=== PATIENT | female | born 1945 | race Two or more races ===

== ENCOUNTER 2017-06-09 18:17 | Emergency (ER) | payer MEDICARE, MEDICAID ==
--- NOTE | 2017-06-09 19:30 | ED Physician Chart ---
ED Chief Complaint/HPI - Patient Information Date Seen:: 06/09/17 Time Seen:: 17:20 Chief Complaint:: PT VERY CONFUSED AND UNABLE TO PROVIDE ANY HISTORY. History of Present Illness:: PT TOO CONFUSED TO PROVIDE HPI. Allergies:: Allergies Allergy/AdvReac Type Severity Reaction Status Date / Time SULFUR Allergy Uncoded 06/09/17 18:20 Vitals:: Vital Signs - 8 hr 06/09/17 18:21 Temp 97.1 F HR 89 RR 18 BP 149/58 O2 Sat % 94 Historian:: EMS (NURSING TRIAGE NOTE REVIEWED. EMS SAYS PT IS MORE CONFUSED AND AGRESSIVE) Review:: Transfer documents Reviewed <Chandler Sena - Last Filed: 06/09/17 19:37> - Patient Information Allergies:: Allergies Allergy/AdvReac Type Severity Reaction Status Date / Time SULFUR Allergy Uncoded 06/09/17 18:20 Vitals:: Vital Signs - 8 hr 06/09/17 18:21 Temp 97.1 F HR 89 RR 18 BP 149/58 O2 Sat % 94 <Nnamdi Bender - Last Filed: 06/09/17 22:42> ED Review of Systems - Review of Systems General/Constitutional: Other (TOO CONFUSED FOR RELIABLE ROS) <Chandler Sena - Last Filed: 06/09/17 19:37> ED Past Medical History - Past Medical History Past Medical History: HTN Social History: Smoker, Alcohol, No Drug Use Employment:: [employer]. <Chandler Sena - Last Filed: 06/09/17 19:37> - Past Medical History Past Medical History: DM <Nnamdi Bender - Last Filed: 06/09/17 22:42> ED Physical Exam - Physical Examination General/Constitutional: Awake, Well-developed, well-nourished, Alert, No distress, Non-toxic appearing, Ambulatory Other Gen/Cons comments:: PT IS AMBULATORY AND WANDERING ABOUT HER NURSING FACILITY. PT IS UNCOOPERATIVE WITH PHYSICAL EXAM, ESPECIALLY THROAT EXAM Head: Atraumatic Eyes: Lids, conjuctiva normal, PERRL, EOMI Skin: Nl inspection, No rash, No skin lesions, No ecchymosis, Well hydrated, No lymphadenopathy ENMT: External ears, nose nl, TM canals nl, Nasal exam nl, Lips, teeth, gums nl Other ENMT comments:: PT WOULD NOT ALLOW FOR EXAM OF POSTERIOR PHARYNX. Neck: Nontender, Full ROM w/o pain, No JVD, No nuchal rigidity, No bruit, No mass, No stridor Respiratory: Nl effort/Exclusion, No Wheeze/Rhonchi/Rales Cardio Vascular: No murmur, gallop, rubs, NL S1 S2 Other Cardio Vascular comments:: GOOD PULSES IN ALL 4 EXTREMITIES. GI: No tenderness/rebounding/guarding, No organomegaly, No hernia, Normal BS's, Nondistended, No mass/bruits, No McBurney tenderness Other GI comments:: RECTAL EXAM DEFERED AT MY DISCRETION. : No CVA tenderness Extremities: No tenderness or effusion, Full ROM, normal strength in all extremities, No edema, Normal digits & nails Neuro/Psych: Normal motor strength Other Neuro/Psych comments:: ALERT BUT CONFUSED AND DISORIENTED. AGRESSIVE. Misc: Normal back, No paraspinal tenderness <Chandler Sena - Last Filed: 06/09/17 19:37> ED Labs/Radiology/EKG Results - Lab Results Results: Laboratory Tests 06/09/17 06/09/17 20:31 20:31 WBC 6.5 RBC 4.31 Hgb 13.2 Hct 39.7 L MCV 92.1 MCH 30.7 MCHC Differential 33.3 RDW 12.9 Plt Count 219 MPV 9.5 Neutrophils % 46.9 Lymphocytes % 42.9 Monocytes % 7.1 Eosinophils % 2.7 Basophils % 0.4 Sodium 140 Potassium 3.5 Chloride 106 Carbon Dioxide 26.1 Anion Gap 11.4 BUN 22 Creatinine 0.6 Est GFR ( Amer) > 60.0 Est GFR (Non-Af Amer) > 60.0 BUN/Creatinine Ratio 36.7 Glucose 161 H Calcium 9.9 Total Bilirubin 0.3 AST 23 ALT 24 Alkaline Phosphatase 60 Total Protein 7.4 Albumin 4.2 Globulin 3.2 Albumin/Globulin Ratio 1.3 Laboratory Tests 06/09/17 06/09/17 20:31 20:31 WBC 6.5 RBC 4.31 Hgb 13.2 Hct 39.7 L MCV 92.1 MCH 30.7 MCHC Differential 33.3 RDW 12.9 Plt Count 219 MPV 9.5 Neutrophils % 46.9 Lymphocytes % 42.9 Monocytes % 7.1 Eosinophils % 2.7 Basophils % 0.4 Sodium 140 Potassium 3.5 Chloride 106 Carbon Dioxide 26.1 Anion Gap 11.4 BUN 22 Creatinine 0.6 Est GFR ( Amer) > 60.0 Est GFR (Non-Af Amer) > 60.0 BUN/Creatinine Ratio 36.7 Glucose 161 H Calcium 9.9 Total Bilirubin 0.3 AST 23 ALT 24 Alkaline Phosphatase 60 Total Protein 7.4 Albumin 4.2 Globulin 3.2 Albumin/Globulin Ratio 1.3 <Nnamdi Bender - Last Filed: 06/09/17 22:42> ED Assessment - Assessment General Assessment: pt in stable condition while in ER. care transfer at change of shift. time of change of shift is 2100. initial evaluation and assessment has been performed by Dr. Sena Please contact Dr. Sena for initial evaluation and assessment information. at examination by Dr. Bender pt is awake, alert, no acute distress. pt is oriented to name. pt is medically clear at this time. 2230. <Nnamdi Bender - Last Filed: 06/09/17 22:42> ED Septic Shock - <6hrs of presentation: Vital Signs: Vital Signs - 8 hr 06/09/17 18:21 Temp 97.1 F HR 89 RR 18 BP 149/58 O2 Sat % 94 <Chandler Sena - Last Filed: 06/09/17 19:37> - . Is Septic Shock (SBP<90, OR Lactate>4 mmol\L) present?: No - <6hrs of presentation: Vital Signs: Vital Signs - 8 hr 06/09/17 18:21 Temp 97.1 F HR 89 RR 18 BP 149/58 O2 Sat % 94 <Nnamdi Bender - Last Filed: 06/09/17 22:42> ED Reassessment (Disposition) - Reassessment Reassessment:: pt in stable condition while in ER. Reassessment Condition:: Unchanged - Diagnosis Diagnosis:: medical clearance for clarisse-psyc pt is medically cleared in ER - Aftercare/Follow up Instructions Aftercare/Follow-Up Instructions:: Refer to Discharge Instructions Notes:: pt case is discussed briefly with Dr. Lang pt to be transferred back to [facility] and call Dr. Lang on arrival for any new orders/recommendations - Patient Disposition Discharge/Transfer:: [facility] Admitting Medical Physician:: Tania Lang Condition at Disposition:: Stable <Nnamdi Bender - Last Filed: 06/09/17 22:42> ED Discharge Plan <Chandler Sena - Last Filed: 06/09/17 19:37> <Nnamdi Bender - Last Filed: 06/09/17 22:42> - Patient Disposition Instructions: Psychosis
[2017-06-09 20:39] LABS: % BASOPHILS 0.4 % (0.0-2.0); % EOSINOPHILS 2.7 % (0.0-5.0); % LYMPHOCYTES 42.9 % (20.0-50.0); % MONOCYTES 7.1 % (2.0-10.0); % NEUTROPHILS 46.9 % (40.0-80.0); EOSINOPHILE ABSOLUTE 0.2 Th/cmm (0.1-0.4); HEMATOCRIT 39.7 % (41.0-60); HEMOGLOBIN 13.2 gm/dL (12-16); LYMPHOCYTE ABSOLUTE 2.8 Th/cmm (1.5-3.0); MEAN CELL VOLUME 92.1 fl (81-100); MEAN CORPUSCULAR HEMOGLOBIN 30.7 pg (27.0-31.0); MEAN CORPUSCULAR HGB CONC 33.3 pg (28.0-36.0); MEAN PLATELET VOLUME 9.5 fl; MONOCYTE ABSOLUTE 0.5 Th/cmm (0.3-1.0); PLATELET COUNT 219 Th/cmm (150-400); RED BLOOD COUNT 4.31 Mil/cmm (3.80-5.20); RED CELL DISTRIBUTION WIDTH 12.9 % (11.5-20.0); WHITE BLOOD COUNT 6.5 Th/cmm (4.8-10.8)
[2017-06-09 20:56] LABS: CHLORIDE 106 mEq/L (98-107); POTASSIUM SERUM 3.5 mEq/L (3.5-5.1); SODIUM SERUM 140 mEq/L (136-145)
[2017-06-09 20:57] LABS: ALB/GLOB RATIO 1.3 (1.0-1.8); ALBUMIN 4.2 gm/dL (3.7-5.3); ANION GAP 11.4 (7.0-16.0); BUN - UREA NITROGEN 22 mg/dL (7-25); CALCIUM SERUM 9.9 mg/dL (8.6-10.3); CARBON DIOXIDE 26.1 mEq/L (21.0-31.0); CREATININE - SERUM 0.6 mg/dL (0.6-1.2); GFR AFRICAN-AMERICAN > 60.0 ml/min (>90); GFR NON AFRICAN-AMERICAN > 60.0 ml/min; GLUCOSE 161 mg/dL (70-105); TOTAL PROTEIN,SERUM 7.4 gm/dL (6.0-8.3)
[2017-06-09 20:58] LABS: ALKALINE PHOSPHATASE 60 U/L (34-104); BILIRUBIN,TOTAL 0.3 mg/dL (0.3-1.0); SGOT 23 U/L (13-39); SGPT/ALT 24 U/L (7-52)
== END 2017-06-10 01:50 ==
LOC: ER 18:17
DX: F03.90 Unspecified dementia, unspecified severity, without behavioral disturbance, psychotic disturbance, mood disturbance, and anxiety (principal); Z01.818 Encounter for other preprocedural examination
CPT/HCPCS: 36415-UA; 80053-TC; 84443-TC; 85025-TC; Z7502